=== PATIENT | female | born 1995 | race Caucasian/White ===

== ENCOUNTER 2017-04-24 21:01 | Emergency (ER) | payer SELFPAY ==
[~2017-04-24] VITALS: Ht 160 cm; Wt 75.0 kg
[~2017-04-24 21:01] MED LIST: FERR325T PO; IBUP600 PO; PERI8.6T PO; STOO100C PO
[2017-04-24] MEDS ORDERED: IOHEXOL 350 MG/ML 10 ML VIAL (for RAD DIAG) IVCONTRAST ONE (21:02)
[2017-04-24 21:14] VITALS: BP 143/78; PULSE 94; RESP 18; TEMP 98.9; O2SAT 99
[2017-04-24] MEDS ORDERED: SODIUM CHLORIDE 0.9% FLUSH 10 ML FLUSH IV FLUSH PRN (21:30)
[2017-04-24] MEDS ORDERED: KETOROLAC TROMETHAMINE 30 MG/ML (IVP) VIAL IV PUSH ONE (21:30)
--- NOTE | 2017-04-24 21:49 | PD ---
HPI Chief Complaint: Back/ Neck Pain or Injury Time Seen by Provider: 21:24 Travel History International Travel<30 days: No Contact w/Intl Traveler<30days: No Traveled to known affect area: No History of Present Illness HPI 21-year-old female here for evaluation of vaginal bleeding for 2 months and bilateral flank pain. The patient reports she was evaluated at [facility] emergency department recently and was diagnosed with uterine fibroids. She has a follow-up appointment with a primary care physician and a group exercise instructor, however this appointment is not for 3 weeks. She reports worsening bilateral flank pain over the last couple of weeks. The pain is described as sharp, constant, radiates to her lower abdomen, no modifying factors. No history of abdominal surgeries. No dysuria. PFSH Past Medical History Anemia: Yes Cancer: No Cardiovascular Problems: No Endocrine: No Genitourinary: No Immune Disorder: No Musculoskeletal: No Neurologic: No Psychiatric: No Reproductive: No Respiratory: No : 1 Para: 1 Past Surgical History Other Surgery: Yes (skin grafts on right upper arm ) Social History Alcohol Use: No Tobacco Use: No Substance Use: No Allergies-Medications (Allergen,Severity, Reaction): Coded Allergies: No Known Allergies (Unverified Allergy, Unknown, 04/24/17) Reported Meds & Prescriptions Reported Meds & Active Scripts Active Sushma-Colace 8.6-50 mg (Sennosides-Docusate Sodium) 1 Tab Tab 2 Tab PO Q12H PRN Motrin 600 Mg Tab (Ibuprofen) 600 Mg Tab 600 Mg PO Q6H PRN Reported Colace (Docusate Sodium) 100 Mg Cap 100 Mg PO BID Iron (Ferrous Sulfate) 325 Mg Tab 325 Mg PO BID Review of Systems Except as stated in HPI: all other systems reviewed are Neg Physical Exam Narrative GENERAL: Well-developed, well-nourished, comfortable, no apparent distress. SKIN: Focused skin assessment warm/dry. No pallor. HEAD: Atraumatic. Normocephalic. EYES: Pupils equal and round. No scleral icterus. No injection or drainage. ENT: No nasal bleeding or discharge. Mucous membranes pink and moist. NECK: Trachea midline. No JVD. CARDIOVASCULAR: Regular rate and rhythm. No murmur appreciated. RESPIRATORY: No accessory muscle use. Clear to auscultation. Breath sounds equal bilaterally. GASTROINTESTINAL: Abdomen soft, non-tender, nondistended. 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 Normal external genitalia. Moderate amount of blood in the vaginal vault coming from the office. No abnormal masses. Normal-appearing cervix. No intravaginal lacerations. MUSCULOSKELETAL: No obvious deformities. No clubbing. No cyanosis. No edema. No midline vertebral step-off or tenderness. Mild bilateral CVA tenderness. NEUROLOGICAL: Awake and alert. No obvious cranial nerve deficits. Motor grossly within normal limits. Normal speech. PSYCHIATRIC: Appropriate mood and affect; insight and judgment normal. Data Data Last Documented VS Vital Signs Date Time Temp Pulse Resp B/P (MAP) Pulse Ox O2 Delivery O2 Flow Rate FiO2 04/24/17 21:47 Room Air 04/24/17 21:14 98.9 94 18 143/78 (99) 99 Orders Orders Complete Blood Count With Diff (04/24/17 21:29) Comprehensive Metabolic Panel (04/24/17 21:29) Prothrombin Time / Inr (Pt) (04/24/17 21:29) Act Partial Throm Time (Ptt) (04/24/17 21:29) Urinalysis - C+S If Indicated (04/24/17 21:29) Ct Abd/Pel W Iv Contrast(Rout) (04/24/17 21:29) Iv Access Insert/Monitor (04/24/17 21:29) Ecg Monitoring (04/24/17 21:29) Oximetry (04/24/17 21:29) Sodium Chloride 0.9% Flush (Ns Flush) (04/24/17 21:30) Ed Urine Pregnancytest Poc (04/24/17 21:29) Ketorolac Inj (Toradol Inj) (04/24/17 21:30) Gc And Chlamydia Pcr (04/24/17 21:29) Wet Prep Profile (04/24/17 21:29) Urine Culture (04/24/17 21:44) Iohexol 350 Inj (Omnipaque 350 Inj) (04/24/17 21:02) Ceftriaxone Inj (Rocephin Inj) (04/24/17 23:15) Medroxyprogesterone Acetate (Provera) (04/24/17 23:30) Labs Laboratory Tests Test 04/24/17 21:44 04/24/17 21:53 04/24/17 22:06 04/24/17 22:35 Urine Color LIGHT-RED Urine Turbidity CLEAR Urine pH 6.5 Urine Specific [place] 1.022 Urine Protein TRACE mg/dL Urine Glucose (UA) NEG mg/dL Urine Ketones NEG mg/dL Urine Occult Blood LARGE Urine Nitrite NEG Urine Bilirubin NEG Urine Urobilinogen LESS THAN 2.0 MG/DL Urine Leukocyte Esterase SMALL Urine RBC /hpf Urine WBC 7 /hpf Urine Squamous Epithelial Cells 6 /hpf Urine Bacteria MOD /hpf Urine Mucus FEW /lpf Microscopic Urinalysis Comment CULTURE INDICATED Clue Cells (Wet Prep) NONE SEEN Vaginal Trichomonas (Wet Prep) NONE SEEN Vaginal Yeast (Wet Prep) NONE SEEN White Blood Count 12.7 TH/MM3 Red Blood Count 4.36 MIL/MM3 Hemoglobin 10.4 GM/DL Hematocrit 32.3 % Mean Corpuscular Volume 74.0 FL Mean Corpuscular Hemoglobin 23.8 PG Mean Corpuscular Hemoglobin Concent 32.1 % Red Cell Distribution Width 16.4 % Platelet Count 336 TH/MM3 Mean Platelet Volume 9.2 FL CBC Comment AUTO DIFF Differential Total Cells Counted 100 Neutrophils % (Manual) 54 % Band Neutrophils % 4 % Lymphocytes % 36 % Monocytes % 3 % Eosinophils % 2 % Basophils % 1 % Neutrophils # (Manual) 7.4 TH/MM3 Differential Comment FINAL DIFF MANUAL Atypical Lymphocytes % Platelet Estimate NORMAL Platelet Morphology Comment ENLARGED Blood Urea Nitrogen 10 MG/DL Creatinine 0.48 MG/DL Random Glucose 113 MG/DL Total Protein 7.4 GM/DL Albumin 3.5 GM/DL Calcium Level 8.2 MG/DL Alkaline Phosphatase 55 U/L Aspartate Amino Transf (AST/SGOT) 93 U/L Alanine Aminotransferase (ALT/SGPT) 155 U/L Total Bilirubin 0.2 MG/DL Sodium Level 138 MEQ/L Potassium Level 4.0 MEQ/L Chloride Level 107 MEQ/L Carbon Dioxide Level 24.1 MEQ/L Anion Gap 7 MEQ/L Estimat Glomerular Filtration Rate 162 ML/MIN [facility] Medical Decision Making Medical Screen Exam Complete: Yes Emergency Medical Condition: Yes Medical Record Reviewed: Yes Differential Diagnosis Menorrhagia, anemia, , ectopic , miscarriage, UTI, cystitis, pyelonephritis, nephrolithiasis Narrative Course Vital signs reviewed. CBC: WBC 12.7, hemoglobin 10.4, hematocrit 32.3, platelets 336. CMP is remarkable for AST 93, ALT 155, otherwise essentially unremarkable. UA suggestive of UTI. Wet prep is negative for yeast, negative for clue cells, negative for trichomonas. CT abdomen and pelvis: Negative CT abdomen pelvis with contrast. Patient was made aware of all findings. Patient likely has pyelonephritis as well as menorrhagia. Plan is to start her on Provera. She will be given a dose of IV Rocephin here in the emergency department and discharged home with Bactrim. She is stable for discharge home with outpatient follow-up. She states she has an appointment in 3 weeks. She was advised on when to return to the emergency department. She verbalizes understanding and agreement with plan. Diagnosis Primary Impression: Menorrhagia Qualified Codes: N92.1 - Excessive and frequent menstruation with irregular cycle Additional Impression: Pyelonephritis Referrals: Geotechnical Engineering Technician 3 days Primary Care Physician 3 days Additional Instructions: Follow-up with an BLEACHING SUPERVISOR physician this week. Follow-up with a primary care physician this week. Return to the emergency department for worsening symptoms or any other concerns. Scripts Tramadol (Tramadol) 50 Mg Tab 50 MG PO Q6H Y for PAIN, #12 TAB 0 Refills Prov: Sam Higuera MD 04/24/17 Sulfamethoxazole-Trimethoprim (Bactrim DS) 800-160 Mg Tab 1 TAB PO BID for Infection, #20 TAB 0 Refills Prov: Sam Higuera MD 04/24/17 Medroxyprogesterone Acetate (Provera) 10 Mg Tab 10 MG PO DAILY for Uterine bleeding, #10 TAB 0 Refills Start day 16 Prov: Sam Higuera MD 04/24/17 Disposition: 01 DISCHARGE HOME Condition: Stable Sam Higuera MD Apr 24, 2017 21:49
[2017-04-24 22:16] LABS: HEMATOCRIT 32.3 % (35.0-46.0); HEMOGLOBIN 10.4 GM/DL (11.6-15.3); MEAN CORPUSCULAR HEMOGLOBIN 23.8 PG (27.0-34.0); MEAN CORPUSCULAR HGB CONC 32.1 % (32.0-36.0); MEAN PLATELET VOLUME 9.2 FL (7.0-11.0); PLATELET COUNT 336 TH/MM3 (150-450); RED BLOOD COUNT 4.36 MIL/MM3 (4.00-5.30); RED CELL DISTRIBUTION WIDTH 16.4 % (11.6-17.2); WHITE BLOOD COUNT 12.7 TH/MM3 (4.0-11.0)
[2017-04-24 22:27] LABS: BACTERIA, URINE MOD /hpf; BILIRUBIN, URINE NEG (NEG); BLOOD, URINE LARGE (NEG); GLUCOSE,URINE NEG (NEG); KETONE, URINE NEG (NEG); MUCUS URINE FEW /lpf (OCC); NITRITE,URINE NEG (NEG); PH, URINE 6.5 (5.0-8.5); SQUAMOUS EPITHELIAL CELL URINE 6 /hpf (0-5); URINE LEUKOCYTE ESTERASE SMALL (NEG)
[2017-04-24 22:28] LABS: URINE COLOR LIGHT-RED (YELLW/STRAW)
[2017-04-24 22:32] LABS: ALBUMIN 3.5 GM/DL (3.4-5.0); ALT (GPT) 155 U/L (10-53); AST (GOT) 93 U/L (15-37); BICARBONATE 24.1 MEQ/L (21.0-32.0); BLOOD UREA NITROGEN 10 MG/DL (7-18); CALCIUM 8.2 MG/DL (8.5-10.1); CHLORIDE 107 MEQ/L (98-107); CREATININE 0.48 MG/DL (0.50-1.00); GLOMERULAR FILTRATION RATE 162 ML/MIN (>89); GLUCOSE,RANDOM 113 MG/DL (74-106); SODIUM (NA) 138 MEQ/L (136-145)
[2017-04-24 22:34] LABS: ALKALINE PHOSPHATASE 55 U/L (45-117); TOTAL BILIRUBIN ADULT 0.2 MG/DL (0.2-1.0); TOTAL PROTEIN 7.4 GM/DL (6.4-8.2)
--- NOTE | 2017-04-24 23:11 | RADRPT ---
EXAM DATE/TIME: 04/24/2017 22:41 [place] COMPARISON: No previous studies available for comparison. INDICATIONS : Left sided abdominal and back pain X 3 weeks. IV CONTRAST: 92 cc Omnipaque 350 (iohexol) IV ORAL CONTRAST: No oral contrast ingested. RADIATION DOSE: 11.28 CTDIvol (mGy) MEDICAL HISTORY : None SURGICAL HISTORY : None. ENCOUNTER: Initial ACUITY: 3 weeks PAIN SCALE: 8/10 LOCATION: Left abdomen TECHNIQUE: Volumetric scanning of the abdomen and pelvis was performed. Using automated exposure control and ad justment of the mA and/or kV according to patient size, radiation dose was kept as low as reasonably achievable to obtain optimal diagnostic quality images. DICOM format image data is available electro nically for review and comparison. FINDINGS: LOWER LUNGS: The visualized lower lungs are clear. LIVER: Homogeneous density without lesion. There is no dilation of the biliary tree. No calcified gallston es. SPLEEN: Normal size without lesion. PANCREAS: Within normal limits. KIDNEYS: Normal in size and shape. There is no mass, stone or hydronephrosis. ADRENAL GLANDS: Within normal limits. VASCULAR: There is no aortic aneurysm. BOWEL/MESENTERY: The stomach, small bowel, and colon demonstrate no acute abnormality. There is no free intraperitone al air or fluid. ABDOMINAL WALL: Within normal limits. RETROPERITONEUM: There is no lymphadenopathy. BLADDER: No wall thickening or mass. REPRODUCTIVE: Uterus and ovaries are within normal limits for age. No evidence of free fluid. INGUINAL: There is no lymphadenopathy or hernia. MUSCULOSKELETAL: Within normal limits for patient age. CONCLUSION: 1. Negative CT abdomen/pelvis with contrast. Otf Hennessy MD on April 24, 2017 at 23:07 Board Certified Radiologist. This report was verified electronically.
[2017-04-24 23:15] LABS: BANDS 4 % (0-6); BASOPHILS 1 % (0-2); MONOCYTES 3 % (0-8); NEUTROPHIL # MANUAL DIFF 7.4 TH/MM3 (1.8-7.7); POLYS (SEG NEUTROPHILS) 54 % (16-70)
[2017-04-24] MEDS ORDERED: cefTRIAXone INJ 1,000 MG in SODIUM CHLORIDE 0.9% INJ 100 ML IV ONE (23:15)
[2017-04-24 23:16] LABS: LYMPHOCYTES 36 % (9-44)
[2017-04-24] MEDS ORDERED: TRAM50TA PO (23:20)
[2017-04-24] MEDS ORDERED: PROV10TA PO (23:20)
[2017-04-24] MEDS ORDERED: BACT800T5 PO (23:20)
[2017-04-24] MEDS ORDERED: medroxyPROGESTERone ACETATE 10 MG TAB PO ONE (23:30)
== END 2017-04-25 00:19 | disposition home or self-care (01) ==
LOC: NEPC 21:01
DX: N92.0 Excessive and frequent menstruation with regular cycle (principal); N12 Tubulo-interstitial nephritis, not specified as acute or chronic; D64.9 Anemia, unspecified
CPT/HCPCS: 74177; 80053; 81001; 84703; 85007; 85027; 85610; 85730; 87086; 87210; 87491; 87591; 96365; 96375; 99284; J0696; J1885; Q9967